=== PATIENT | female | born 1985 | race Caucasian/White ===

== ENCOUNTER 2017-07-06 15:46 | Emergency (ER) | payer OTHER ==
--- NOTE | ~2017-07-06 | CR127 ---
[facility]. [facility] A Service of [facility] & [facility] [place] RADIOLOGY TEXT RESULTS PATIENT: RONALD CHAN LOCATION: SED : 81 UNIT #: [id number] AGE: [address]: Mian Barillas SEX: F ORDER DR: [id number] [address] [address] [id number] E MR#: [id number] Acc #: [id number] NAME: RONALD CHAN : 1985 SEX: F STUDY DATE/TIME: 07/06/2017 16:24 UNIT: SED ROOM: STUDY DESCRIPTION: CR Foot Complete Min 3 View Rt Attending Physician: Mian Barillas P.A.-C. Ordering Physician: Mian Barillas P.A.-C. Primary Care Physician: Rafael Molina M.D. MEDICAL IMAGING REPORT This report is preliminary unless electronic signature is present. EXAM Right foot 3 views HISTORY Foot pain after fall 1 week ago. FINDINGS 3 views of the right foot demonstrate minimal degenerative changes at the first MTP joint. No fracture or joint space narrowing or dislocation. No opaque foreign body. IMPRESSION No acute findings. 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 Dictated by... Geo Macdonald M.D. THIS IS AN ELECTRONICALLY VERIFIED REPORT Geo Macdonald M.D. at 07/07/2017 10:38 PM LAYLA/pepe TD: 07/07/2017 15:01 JOB #: [id number] MEDICAL IMAGING REPORT Page 1 of 1
--- NOTE | ~2017-07-06 | CR21 ---
[facility]. [facility] A Service of [facility] & [facility] RADIOLOGY TEXT RESULTS PATIENT: RONALD CHAN LOCATION: SED : [birth year] UNIT #: [id number] AGE: [address]: Mian Barillas SEX: F ORDER DR: [id number] [address] [address] [id number] E MR#: [id number] Acc #: [id number] NAME: RONALD CHAN : 1985 SEX: F STUDY DATE/TIME: 07/06/2017 16:24 UNIT: SED ROOM: STUDY DESCRIPTION: CR Ankle Min 3 Views Rt Attending Physician: Mian Barillas P.A.-C. Ordering Physician: Mian Barillas P.A.-C. Primary Care Physician: Rafael Molina M.D. MEDICAL IMAGING REPORT This report is preliminary unless electronic signature is present. EXAM Right ankle, 3 views HISTORY Foot and ankle pain after fall 1 week ago. FINDINGS AP, lateral, and oblique projections of the ankle show satisfactory integrity of the joint mortise with a smooth articular surface. There is no identifiable fracture, dislocation, or radiopaque foreign body. IMPRESSION Normal ankle. Dictated by... Geo Macdonald M.D. THIS IS AN ELECTRONICALLY VERIFIED REPORT Geo Macdonald M.D. at 07/07/2017 10:38 PM DFL/psc TD: 07/07/2017 14:59 JOB #: [id number] MEDICAL IMAGING REPORT Page 1 of 1
[~2017-07-06 15:46] MED LIST: CIPRO PO; FLEXERIL10 MG PO; KETOPROFEN PO; NAPROSYN500 MG PO; NAPROXEN; NO MEDICATIONS; ORUDIS75 M1 PO; PHENERGAN PO; PHENERGAN25 MG PO; ULTRAM PO; VOLTAREN75 MG PO
== END 2017-07-06 17:08 | disposition home or self-care (01) ==
LOC: SED 15:46
DX: S93.601A Unspecified sprain of right foot, initial encounter (principal); Z88.5 Allergy status to narcotic agent; Z88.8 Allergy status to other drugs, medicaments and biological substances; W10.9XXA Fall (on) (from) unspecified stairs and steps, initial encounter; Y92.009 Unspecified place in unspecified non-institutional (private) residence as the place of occurrence of the external cause
CPT/HCPCS: 29540; 73610; 73630; 99283